=== PATIENT | female | born 2000 | race Two or more races ===

== ENCOUNTER 2025-01-15 04:52 | Emergency (ER) | payer MEDICAID, SELFPAY ==
--- NOTE | 2025-01-15 | XR_ITS ---
MRI abdomen, without contrast. MRCP Date and time of exam: January 15, 2025 at 0830 hrs. Indications: Epigastric pain 5 months worse today, gallbladder sonogram January 15, 2025 abnormally enlarged common bile duct Technique: Multiple axial and coronal images of the abdomen have been obtained with the Siemens 1.5T MRI scanner. Images obtained included T1 weighted transverse images, T2-weighted transverse images, T2-weighted transverse images fat-suppressed, T2 weighted haste fat suppressed transverse images, T1 weighted images, in and out of phase images, T2-weighted coronal images, breath hold, T2 weighted haze coronal images as well as T2 weighted coronal thick slab images, MRCP. Findings: Intrahepatic biliary tract dilatation Multiple gallstones Gallbladder wall does not appear thickened Extrahepatic biliary tract dilatation, common bile duct 12 mm with 7 mm impacted stone in the distal common bile duct Negative for pancreatitis Spleen not enlarged No ascites No hydronephrosis Impression: Significant extrahepatic biliary tract obstruction secondary to 7 mm impacted stone in the distal common bile duct, recommend ERCP follow-up
[2025-01-15 04:53] VITALS: BMI 28.8
[2025-01-15 04:59] VITALS: BP 119/81; PULSE 92; RESP 19; TEMP 36.6; O2SAT 96
--- NOTE | 2025-01-15 05:41 | EDRME_ITS ---
Rapid Medical Screening Exam [facility] Arrival date/time: 01/15/25 04:52 24F with no significant PMH presents to ED with 4-5 months of daily RUQ/epigastric pain and N/V that worse when eating. Patient has had outpatient work-up but doesn't know results. Patient pain got a lot worse last night. Patient has been taking Zofran and Tylenol w/o relief. Chief Complaint: Abdominal Pain Vital signs: Vital Signs Temperature 97.8 F 01/15/25 04:59 Pulse Rate 92 01/15/25 04:59 Respiratory Rate 19 01/15/25 04:59 Blood Pressure 119/81 01/15/25 04:59 Pulse Oximetry (%) 96 01/15/25 04:59 Oxygen Delivery Method Room Air 01/15/25 04:59
--- NOTE | 2025-01-15 05:41 | XR_ITS ---
Examination: Abdomen sonogram, Limited Date and time of exam: January 15, 2025 at 0613 hrs. Indications: Right upper abdominal pain beginning 4 months ago Technique: Real-time clemente scale transabdominal sonographic images of the upper abdomen obtained. Findings: Multiple gallstones. Gallbladder wall 0.2 cm no edema Common bile duct 0.9 cm no definite stones Pancreatic head 3.0 cm Liver 15.2 cm no focal liver lesions Normal hepatopedal portal venous flow Patent IVC Impression: Cholelithiasis, negative for cholecystitis Abnormally enlarged common bile duct, consider MRCP follow-up to exclude stones in the common bile duct
[2025-01-15] MEDS: METOCLOPRAMIDE 5 MG TABLET 10 MG PO (06:04)
[2025-01-15 06:48] LABS: Collection Type, Urine Clean Catch
[2025-01-15 07:29] LABS: Bacteria,Urine Rare; Bilirubin,Urine Negative (Negative); Blood,Urine Negative (Negative); Clarity,Urine Clear (Clear/Hazy); Color,Urine Yellow (Lt Yel-Yel); Glucose, Urine Negative (Negative); HCG Qualitative,Urine Negative; Ketones,Urine Negative (Negative); Leukocyte Esterase,Urine Positive (Negative); Nitrite,Urine Negative (Negative); Protein,Urine 1+ (Neg - Trace); RBC,Urine 5 /hpf (0-3); Specific Gravity,Urine 1.028 (1.001-1.035); Squamous Epithelial Cell,Urine 6 /hpf (0-5); WBC,Urine 4 /hpf (0-5)
[2025-01-15 07:37] LABS: Amphetamine/Methamp Scrn,U Negative (Negative); Barbiturate Screen,Urine Negative (Negative); Benzodiazepines Screen,Urine Negative (Negative); Benzoylecgonine Screen, Ur Negative (Negative); Fentanyl Screen,Urine Negative (Negative); Opiate Screen,Urine Negative (Negative); THC Screen,Urine Negative (Negative)
[2025-01-15 08:07] LABS: Basophils # (Auto) 0.1 Thou/mm3 (0.0-0.2); Basophils % (Auto) 0 % (0-2.5); Eosinophils % (Auto) 0 % (0-10); Hematocrit 40.8 % (36.0-46.0); Hemoglobin 14.2 g/dL (12.0-16.0); Immature Granulocytes % (Auto) 0 % (0-0); Immature Granulocytes Auto 0.04 Thou/mm3 (0.00-0.00); Lymphocytes # (Auto) 1.6 Thou/mm3 (1.0-4.8); Lymphocytes % (Auto) 13 % (10-50); Mean Corpuscular HGB Conc 34.8 g/dl (31.0-37.0); Mean Corpuscular Hemoglobin 30.3 pg (25.0-35.0); Mean Corpuscular Volume 87 fL (80-100); Monocytes # (Auto) 0.5 Thou/mm3 (0.0-0.8); Monocytes % (Auto) 4 % (0-12); Neutrophils # (Auto) 10.2 Thou/mm3 (1.8-7.7); Neutrophils % (Auto) 82 % (37-80); Nucleated Red Blood Cell % 0 /100 WBC (0); Platelet Count 245 Thou/mm3 (140-440); RDW Standard Deviation 38.9 fL (36.4-46.3); Red Blood Count 4.69 Miln/mm3 (4.00-5.20); White Blood Count 12.4 Thou/mm3 (3.6-11.0)
[2025-01-15 08:13] VITALS: BP 138/76; PULSE 89; RESP 16; TEMP 36.8; O2SAT 99
[2025-01-15 08:21] LABS: Alanine Aminotransferase 212 U/L (10-49); Albumin, Serum 4.8 gm/dL (3.5-5.0); Albumin/Globulin Ratio 1.5 (1.2-2.2); Alkaline Phosphatase 86 U/L (46-116); Anion Gap 7 (7-16); Aspartate Amino Transferase 349 U/L (0-34); BUN/Creatinine Ratio 9 Ratio (12-20); Bilirubin,Total 0.7 mg/dL (0.3-1.2); Blood Urea Nitrogen 6 mg/dL (9-23); Calcium 9.5 mg/dL (8.3-10.6); Calcium (Corrected) 9.5 mg/dL (8.5-10.1); Carbon Dioxide 23.7 mMol/L (20.0-31.0); Chloride 109 mMol/L (98-107); Creatinine (Component) 0.7 mg/dL (0.6-1.3); Estimated Creatinine Clearance 148.2 mL/min (>60); Globulin 3.1 gm/dL (2.3-3.5); Glucose 103 mg/dL (74-106); Lipase 46 U/L (12-53); Osmolality,Calculated 277 (275-295); Potassium 3.6 mMol/L (3.4-5.1); Sodium 140 mMol/L (136-145); Total Protein 7.9 gm/dL (5.7-8.2); eGFR > 60 See Note
[2025-01-15 09:06] VITALS: BP 125/81; PULSE 81; RESP 17; TEMP 36.9; O2SAT 99
--- NOTE | 2025-01-15 10:19 | EDNOTE_ITS ---
ED Abdominal Pain RME/HPI General Chief Complaint: Abdominal Pain Stated complaint: ABD PAIN Arrival date/time: 01/15/25 04:52 RME / HPI RME / HPI narrative: 01/15/25 04:52 24F with no significant PMH presents to ED with 4-5 months of daily RUQ/epigastric pain and N/V that worse when eating. Patient has had outpatient work-up but doesn't know results. Patient pain got a lot worse last night. Patient has been taking Zofran and Tylenol w/o relief. DR. LEIJA MAIN ED EVALUATION: 24 year old female with no significant medical history, no previous abdominal surgeries, presents to the ED for evaluation of abdominal pain today. States pain is located most to the epigastric region that woke her from sleep at 02:00 AM today, rated as severe. No known modifying factors at home, prompting ED visit. Accompanied by nausea. Patient reports for the last 2 months she has had persistent epigastric pain where she would occasionally get flare-up's that would start from the right flank/RUQ and radiate back to the epigastric region, usually after fatty/greasy foods. States she cut down on the fatty/greasy foods and the pain flare-ups went away but started picking up more in the last 2-3 weeks. Early this morning she began to have pain without having eaten; last meal was yesterday at 1PM. Reportedly consulted with her PCP and had labs that are currently pending. Denies fevers, chills, vomiting, diarrhea. Related Data Allergies Allergy/AdvReac Type Severity Reaction Status Date / Time NKA Allergy Unknown Uncoded 05/05/03 22:14 Review of Systems Review of Systems Narrative Review of Systems: Gen: No fever, no chills, no weight loss EYES: No discharge, no visual changes, no pain HEENT: No ear pain, no congestion, no sore throat PULM: no shortness of breath, no cough, no congestion CV: No chest pain, no dyspnea on exertion, no palpitations, no chest tightness GI: + nausea, no vomiting, no diarrhea,+ pain, no constipation : No frequency, no urgency,? no dysuria Musc/skel: No joint pain, no back pain Skin: No rash, no ecchymosis, no lesions Neuro: No weakness, no headache Past Medical History Past Medical History CARDIAC: Negative Congestive Heart Failure RESPIRATORY: Negative Respiratory Disorders or Chronic Obstructive Pulmonary Disease (COPD) GENITOURINARY: Negative Renal Disease ENDOCRINE: Negative Diabetes Mellitus Type 1 or Diabetes Mellitus Type 2 Social History SMOKING STATUS: Never smoker ED Exam Narrative Physical exam: GENERAL APPEARANCE: AxOx4, no obvious distress, nontoxic appearing HEENT: NC, AT. MMM. EOMI, clear conjunctiva, oropharynx clear. NECK: Supple without lymphadenopathy. No stiffness or restricted ROM. HEART: Normal rate and regular rhythm, normal S1/S1, no m/r/g LUNGS: CTAB, moving air well. No crackles or wheezes are heard. ABDOMEN: Soft, residual epigastric pain otherwise no tenderness to palpation, nondistended with good bowel sounds heard. BACK: No midline C/T/L spine pain or deformity, No CVAT, no obvious deformity. EXTREMITIES: Without cyanosis, clubbing or edema. MUSCULOSKELETAL: FROM of all major joints, no chest tenderness NEUROLOGICAL: Grossly nonfocal. Alert and oriented, moving all 4 extremities. CN not formally tested but appear grossly intact. Skin: Warm and dry without any rash. Course Course Course Narrative: 1018: I spoke with our transfer nurse and aware of plan to transfer for ERCP. Quality Measures none Orders Category Date Time Status MRI Screening NOW Care 01/15/25 07:46 Completed NPO NOW Care 01/15/25 11:00 Completed Referral - Quality Assurance Inspector Stat Cons 01/15/25 10:18 Active Diet NPO (NOW) Diet 01/15/25 11:00 Active MR MRCP Stat Exams 01/15/25 Completed US gall bladder Stat Exams 01/15/25 05:41 Completed CBC Stat Lab 01/15/25 07:27 Completed CMP [Comprehensive Metabolic Panel] Stat Lab 01/15/25 07:27 Completed Drug Screen,Urine Stat Lab 01/15/25 06:40 Completed HCG Qualitative,Urine Stat Lab 01/15/25 06:40 Completed Lipase Stat Lab 01/15/25 07:27 Completed UA [Urinalysis] Stat Lab 01/15/25 06:40 Completed Metoclopramide [Reglan] Med 01/15/25 05:41 Discontinued 10 mg PO X1 ONE Sodium Chloride 0.9% 1000 ml [Ns] 1,000 ml Med 01/15/25 11:01 Discontinued IV 999 mls/hr cefTRIAXone/D5w 1gm IV premix [Rocephin/D5w 1gm IV Med 01/15/25 11:01 Discontinued premix] 1 gm in 50 ml IV X1 Vital Signs Vital signs: Vital Signs Temperature 97.8 F 01/15/25 04:59 Pulse Rate 92 01/15/25 04:59 Respiratory Rate 19 01/15/25 04:59 Blood Pressure 119/81 01/15/25 04:59 Pulse Oximetry (%) 96 01/15/25 04:59 Oxygen Delivery Method Room Air 01/15/25 04:59 Pulse ox is 96% on room air which is adequate. Abdominal Pain MDM MDM Narrative MDM Narrative:: Patito Haley am scribing for and in the presence of Dr. Leija. Patient data External records reviewed:: [facility] previous records (Per EMR, no previous records for review. ) Clinical information provided by:: patient Social determinants that could affect healthcare access:: none Patient has the following chronic illnesses:: No chronic medical history reported, no surgical hx How is presenting disease/condition affected by chronic disease/condition?: no chronic disease Evaluation data The following diagnostics were reviewed and interpreted by me:: lab results and radiology exam(s) Lab and/or radiology exams considered but not ordered:: None Interpretation Summary: Ordering Physician: Kvng Leija MD Date of Service: 01/15/25 Procedure(s): MR MRCP Accession Number(s): [id number] cc: Kvng Leija MD; Jeremie Ragland MD; Gisela Stock~ MRI abdomen, without contrast. MRCP Date and time of exam: January 15, 2025 at 0830 hrs. Indications: Epigastric pain 5 months worse today, gallbladder sonogram January 15, 2025 abnormally enlarged common bile duct Technique: Multiple axial and coronal images of the abdomen have been obtained with the Siemens 1.5T MRI scanner. Images obtained included T1 weighted transverse images, T2-weighted transverse images, T2-weighted transverse images fat-suppressed, T2 weighted haste fat suppressed transverse images, T1 weighted images, in and out of phase images, T2-weighted coronal images, breath hold, T2 weighted haze coronal images as well as T2 weighted coronal thick slab images, MRCP. Findings: Intrahepatic biliary tract dilatation Multiple gallstones Gallbladder wall does not appear thickened Extrahepatic biliary tract dilatation, common bile duct 12 mm with 7 mm impacted stone in the distal common bile duct Negative for pancreatitis Spleen not enlarged No ascites No hydronephrosis Impression: Significant extrahepatic biliary tract obstruction secondary to 7 mm impacted stone in the distal common bile duct, recommend ERCP follow-up Dictated By:Jeremie Ragland MD Signed By:<Electronically signed by Jeremie Ragland MD in OV>01/15/25 0855 Ordering Physician: Yasmany Perez PA-C Date of Service: 01/15/25 Procedure(s): US gall bladder Accession Number(s): [id number] cc: Jeremie Ragland MD; Gisela Stock; Yasmany Perez PA-C~ Examination: Abdomen sonogram, Limited Date and time of exam: January 15, 2025 at 0613 hrs. Indications: Right upper abdominal pain beginning 4 months ago Technique: Real-time clemente scale transabdominal sonographic images of the upper abdomen obtained. Findings: Multiple gallstones. Gallbladder wall 0.2 cm no edema Common bile duct 0.9 cm no definite stones Pancreatic head 3.0 cm Liver 15.2 cm no focal liver lesions Normal hepatopedal portal venous flow Patent IVC Impression: Cholelithiasis, negative for cholecystitis Abnormally enlarged common bile duct, consider MRCP follow-up to exclude stones in the common bile duct Dictated By:Jeremie Ragland MD Signed By:<Electronically signed by Jeremie Ragland MD in OV>01/15/25 0722 Medications / Prescriptions Medications or Prescriptions considered but not ordered:: None Medication administrations:: Medication Administration History Discontinued Medications Sodium Chloride (Ns) 1,000 mls @ 999 mls/hr IV .Q1H1M ONE Stop: 01/15/25 12:01 Last Infusion: 01/15/25 12:15 Dose: Infused Documented By: Admin: 01/15/25 11:04 Dose: 999 mls/hr Documented By: EDA Ceftriaxone Sodium/Dextrose (Rocephin/D5w 1gm Iv Premix) 1 gm in 50 mls @ 100 mls/hr IV X1 ONE Stop: 01/15/25 11:30 Last Infusion: 01/15/25 11:40 Dose: Infused Documented By: Admin: 01/15/25 11:09 Dose: 100 mls/hr Documented By: EDA Metoclopramide HCl (Metoclopramide 5 Mg Tablet) 10 mg PO X1 ONE Stop: 01/15/25 05:42 Last Admin: 01/15/25 06:04 Dose: 10 mg Documented By: See above Consultations Consultation(s) initiated? (list below): Yes Consultation #1 (Physician, Specialty, Details): I spoke with GI Dr. Duke at [facility]. Discussed patients PMHx, HPI, ED course, exam findings, labs, and radiology results. Dr. Duke accepts the patient for traser. Time: 11:12 Diagnosis Differential diagnosis abdominal pain: abdominal pain, calculus of kidney, constipation, gastroenteritis, pancreatitis and other (gastritis, cholelithiasis) Most likely diagnosis given after review of the tests above:: choledocholithiasis cholelithiasis Admission Indicated Admission indicated?: not indicated Admission Request Was there a request for admission?: No Disposition Plan Disposition Plan: Discharge Discharge Attestation Discharge Attestation: The patient and all family members were given an opportunity to ask questions and understood the discharge instructions. Discharge instructions specifically effects, indications for sooner follow up or return to the emergency department, and the expected course of current diagnosis. Patient condition: Stable Discharge Plan Plan Patient Disposition: [facility] Acute Care [facility] Facility Pt Being Transferred to: [facility] Service Needed for Transfer: Gastroenterology Patient condition on transfer: Stable Prescriptions/Referrals Referrals: Gisela Stock FNP [Primary Care Provider] - In 1 week Problem List Clinical Impression: Choledocholithiasis, Cholelithiasis Patient/Caregiver Discharge Instructions Print Language: Georgian Stand Alone Forms: Ines Award Info., Patient Portal Info Letter
--- NOTE | 2025-01-15 10:24 | PC.CC ---
Addendum entered by Daphne Kline RN 01/15/25 11:18: Patient accepted to [facility] ER to ER under Dr. Duke by Adin, report to be called to [phone] Addendum entered by Daphne Kline RN 01/15/25 11:05: Adin called back and transferred to speak to Dr. Lang Addendum entered by Daphne Kline RN 01/15/25 10:32: Spoke to Adin at [facility] [place] about possible transfer will wait for call back Original Note: Made aware by Dr. Lang that patient needs transfer for ERCP, chart faxed to [facility] [place]
[2025-01-15] MEDS: SODIUM CHLORIDE 0.9% 1000 ML 1,000 ML 999 ML IV (11:04)
[2025-01-15 11:05] VITALS: BP 139/83; PULSE 86; RESP 17; TEMP 36.9; O2SAT 99
[2025-01-15] MEDS: cefTRIAXone/D5w 1gm IV premix 1 GM/50 ML BAG IV (11:09)
== END 2025-01-15 12:35 | disposition short-term general hospital (02) ==
PROVIDERS: Physician Assistant; Emergency Provider Emergency Medicine; PCP Nurse Practitioner Family
DX: K80.71 Calculus of gallbladder and bile duct without cholecystitis with obstruction (principal); Z75.1 Person awaiting admission to adequate facility elsewhere
CPT/HCPCS: 36415; 76705; 80053; 80307; 81001; 81025; 83690; 85025; 96361; 96365; 99285; J0696; J7030; S8037; 74181; A9270